=== PATIENT | female | born 1960 | race Caucasian/White ===

== ENCOUNTER 2024-12-26 14:00 | Emergency (ER) | payer OTHER, SELFPAY ==
[2024-12-26 14:05] VITALS: BP 152/88
[2024-12-26 14:17] LABS: Hematocrit 42.1 % (37.0-47.0); Hemoglobin 13.8 g/dL (12.0-16.0); Mean Corp Hgb Conc. 32.8 g/dL (33.0-37.0); Mean Corpuscular Volume 90.9 fL (81.0-99.0); Nucleated Red Blood Cells % 0 %; Platelet Count 272 10^3/uL (130-400); Red Cell Dist. Width 11.9 % (11.5-14.5)
[2024-12-26 14:35] LABS: ALT (SGPT) 29 U/L (0-35); AST (SGOT) 22 U/L (14-36); Albumin 4.5 g/dl (3.5-5.0); Alkaline Phosphatase 88 U/L (38-126); Blood Urea Nitrogen 17 mg/dl (7-17); Calcium 10.0 mg/dl (8.4-10.2); Carbon Dioxide 31 mmol/L (22-30); Chloride 102 mmol/L (98-107); Glucose 119 mg/dl (70-99); Potassium 4.3 mmol/L (3.5-5.1); Sodium 138 mmol/L (135-145); Total Protein 7.0 g/dl (6.3-8.2); eGFR > 60.00
[2024-12-26 17:34] VITALS: BP 111/75
[2024-12-26 18:00] VITALS: BP 130/75
[2024-12-26 18:02] VITALS: BMI 24.7
--- NOTE | 2024-12-26 18:47 | ED.GENMED ---
History of Present Illness
General
Chief Complaint: Dizziness
Source: patient and spouse
Exam Limitations: none
Time Seen by Provider: 12/26/24 18:43
Nursing documentation reviewed up to this point in time: agreed with
History of Present Illness
History of Present Illness:
Patient with history of vertigo 5 years ago, presents to ED secondary to 1 week history of persistent dizziness sensation, especially with head movement and when walking. Patient reports minimal symptoms when lying down without movement. Patient
was evaluated at urgent care center where she was prescribed Medrol Dosepak and meclizine, along with zpak (prescribed by pcp) with mild improvement in symptoms. Denies fever or chills. Patient reports mild headache with nasal congestion
sensation. Denies ear pain or difficulty hearing. Denies recent travel. Denies sick contact. Denies difficulty with speech. Denies loss of sensation or weakness. Denies blurred vision.
Past History
Past History
ED Past Medical History: GERD
ED Past Surgical History: None
Social History
Tobacco: Non-smoker
Alcohol: Occasional
Drug: None
Personal:
Living: with family
Employment: Disabled
Family History
Family History: Other (n/c)
Review of Systems
Review of Systems
Allergies reviewed?: Yes
All Other Systems: ROS reviewed and negative except as documented in HPI and ROS
Constitutional: Reports no symptoms; Denies fever or chills
Respiratory: Reports no symptoms
Cardiac: Reports no symptoms
ABD/GI: Reports nausea; Denies abdominal pain
Musculoskeletal: Reports no symptoms
Skin: Reports no symptoms
Neurological: Reports dizzy and headache
Phy Exam
Physical Exam
Physical Exam:
Physical Exam
General: mild distress, not acutely ill. afebrile
Head: nc/at. eomi. horizontal nystagmus noted.
Neck: supple. normal range of motion.
Heart: s1/s2 regular rate and rhythm
Lungs: no acute respiratory distress. clear bilaterally
Abdomen: normal bowel sounds. not tender.
Neuro: alert and oriented x 3. no focal neurological deficits. normal speech
Skin: no rash
Psychiatric: well kept. interactive and cooperative
Extremities: no edema. no calf tenderness.
Course
Orders/Labs/Results
Orders:
Orders
12/26/24 14:07
Electrocardiogram (*1) Urgent
Reason for Study: Vertigo / Dizzy
EKG- Treatment ONCE
12/26/24 14:10
Complete Blood Count/With Diff Urgent
Comprehensive Metabolic Panel Urgent
12/26/24 19:04
0.9% Sodium Chloride 250 ml [Nss] 250 ml IV BOLUS
diazePAM [Valium Injection] 2 mg IV NOW STA
12/26/24 20:41
Meclizine [Antivert] 25 mg PO NOW STA
Abnormal Lab Results
12/26/24
14:10
MCHC 32.8 L g/dL
(33.0-37.0)
Absolute Monos (auto) 0.9 H 10^3/uL
(0.1-0.6)
Monocytes % 9.9 H %
(1.7-9.3)
Carbon Dioxide 31 H mmol/L
(22-30)
Glucose 119 H mg/dl
(70-99)
12/26/24 14:10
12/26/24 14:10
Vital Signs
Initial and Last Documented VS:
Initial Vital Signs
Temp Pulse Resp BP Pulse Ox
97.4 F 112 16 152/88 98
12/26/24 14:05 12/26/24 14:05 12/26/24 14:05 12/26/24 14:05 12/26/24 14:05
Last Documented Vital Signs
Temp Pulse Resp BP Pulse Ox
97.4 F 97 18 129/76 99
12/26/24 14:05 12/26/24 20:31 12/26/24 18:04 12/26/24 20:31 12/26/24 20:31
MDM/Problems Addressed
MDM/Problems Addressed:
CT head reportedly normal 5 years ago, when she experienced vertigo. With no focal neurological deficit, do not feel that another imaging study is warranted at this time.
Patient provided with Valium in ED, with significant improvement symptoms. Patient is able to ambulate independently with steady gait, without much difficulty. At this time, patient feels comfortable going home for outpatient workup, including
continuation of prescribed medication, along with physical therapist/vestibular therapy, as an outpatient. Advised to return to ED with worsening symptoms. Patient expressed understanding, at time of discharge, to the care of her spouse.
*Pulse Oximetry
SaO2: 96
Oxygen Mode of Delivery: Room air
Patient hypoxic: no
*EKG
Interpreted by ED Provider?: Yes
EKG Intrepretation Date: 12/26/24
Heart Rate: 100
Rate: normal
Rhythm: sinus
[place]: normal axis
*Critical Care Note
Total Time (30-74mins, 75-104mins- exclusive of procedures): Not Applicable
ED Attending Note
-
Portions of this chart may have been created with voice recognition software.� Occasional wrong word or��sound alike� substitutions may have occurred due to the inherent limitations of voice recognition software.
Discharge Plan
Departure
Patient Disposition: Home (Routine Discharge)
Date of Disposition: 12/26/24
Time of Disposition: 20:33
Patient with high blood pressure during this ER visit?: Yes
Condition: Good
Discharge Problem:
Vertigo
Instructions: Vertigo (a Type of Dizziness) (DC)
Prescriptions:
New
meclizine 25 mg tablet
25 mg PO BID PRN (Reason: dizziness) Qty: 20 0RF
diazepam [Valium] 2 mg tablet
2 mg PO TID PRN (Reason: dizziness) Qty: 7 0RF
No Action
midodrine 5 MG tablet
5 mg PO TIDPRN PRN (Reason: hyoptention)
rizatriptan 10 MG tablet,disintegrating
10 mg PO .AT ONSET PRN (Reason: headache)
nortriptyline
35 mg PO HS
estradiol
0.05 patch WEEKLY
Patient Comments:
Applied once a week
famotidine [Pepcid] 40 mg Tablet
40 mg PO BID
Probiotic
1 cap PO DAILY
Lactaid
1 tab PO BID PRN (Reason: GI upset)
Patient Comments:
Sensimist
1 spray intranasal DAILY
multivitamin Tablet
1 tab PO DAILY
calcium
650 mg PO BID
Rx Instructions:
Viactive
multivitamin [Hair,Nails and Skin Vitamin] Tablet
1 tab PO DAILY
Brandee
180 mg PO DAILY
Zyrtec
10 mg PO DAILY
meloxicam [Mobic] 7.5 mg Tablet
7.5 mg PO DAILY
Plenvu 140-9-5.2 gram Powder In Packet, Sequential
PO ONCE
Rx Instructions:
Plenvue prep started 11/02/22 at 1700 and second round started 11/03/22 at 0500.
Referrals:
Violetta Silverman CRNP [Family Provider, Family Practice]
Activity Restrictions/Additional Instructions:
As discussed, please follow-up with your primary care physician for reevaluation. In addition, strongly consider contacting physical therapy department at [facility], as you may be candidate for vestibular therapy for ongoing symptoms
related to vertigo. Your prescriptions have been sent electronically to [facility] pharmacy in [facility].
Interventions
Interventions:
*Risk Screen - Suicide Last Done: 12/26/24 14:07
*General Assessment Last Done: 12/26/24 18:03
*Neglect/Abuse Screening Last Done: 12/26/24 14:07
*ED- Fall Risk Assessment Last Done: 12/26/24 18:03
*ED COVID-19 Vaccine History Last Done: 12/26/24 18:03
*Nursing Disposition Last Done: 12/26/24 20:51
ED- Neurological Assessment Last Done: 12/26/24 18:04
ED- Cardiac Assessment Last Done: 12/26/24 18:04
ED Swallowing Screen Last Done: 12/26/24 20:15
Discharge Date and Time
Discharge Date/Time: 12/26/24 20:54
Print Language: GREENLANDIC
[2024-12-26 19:00] VITALS: BP 116/63
[2024-12-26] MEDS: VALIUM INJECTION 2 MG IV (19:26)
[2024-12-26] MEDS: NSS 250 IV (19:29)
[2024-12-26 20:00] VITALS: BP 117/63
[2024-12-26 20:31] VITALS: BP 129/76
[2024-12-26] MEDS: ANTIVERT 25 MG PO (20:46)
== END 2024-12-26 20:54 | disposition home or self-care (01) ==
LOC: EMR 14:00
PROVIDERS: Student in an Organized Health Care Education/Training Program; EMERGENCY PHYSICIAN Emergency Medicine; FAMILY PHYSICIAN Registered Nurse
DX: R42 Dizziness and giddiness (principal); R51.9 Headache, unspecified; R09.81 Nasal congestion
CPT/HCPCS: 96374; 96361; 99284; 80053; 85025; 93005

== ENCOUNTER → 2025-02-13 15:00 | Outpatient (REF) | payer OTHER, SELFPAY | LOC: HWRCS 15:00 | PROVIDERS: ATTENDING PHYSICIAN Student in an Organized Health Care Education/Training Program; FAMILY PHYSICIAN Registered Nurse | DX: R55 Syncope and collapse (principal) | CPT/HCPCS: 93306 ==